=== PATIENT | female | born 1965 | race Caucasian/White ===

== ENCOUNTER → 2024-01-10 | Outpatient (CLI) | payer BC ==
[~2024-01-10] MED LIST: ALLE25CA OR; IBUP600T OR; LEVA500T OR; ONDA-1 OR; PROT1TAB2 OR; VICO5TAB OR
== END ==
LOC: M RAD 10:39
PROVIDERS: ATTEND Family Medicine
DX: E04.1 Nontoxic single thyroid nodule (principal)

== ENCOUNTER → 2024-04-28 | Outpatient (CLI) | payer BC | LOC: M CARPUL 07:34 | PROVIDERS: ATTEND Internal Medicine Pulmonary Disease | DX: R05.9 Cough, unspecified (principal) ==

== ENCOUNTER → 2024-06-01 | Outpatient (CLI) | payer BC | LOC: M RAD 11:19 | PROVIDERS: ATTEND Internal Medicine Pulmonary Disease | DX: J45.40 Moderate persistent asthma, uncomplicated (principal); R05.9 Cough, unspecified ==